=== PATIENT | female | born 1990 | race Two or more races ===

== ENCOUNTER 2019-03-07 21:20 | Emergency (ER) | payer MEDICAID ==
[~2019-03-07] VITALS: Ht 160 cm; Wt 81.6 kg
[2019-03-07 22:26] VITALS: BP 127/76
[2019-03-07] MEDS ORDERED: methylPREDNISolone SOD SUCC 125 MG/2 ML VL IM ONE (22:30)
[2019-03-07] MEDS ORDERED: methylPREDNISolone SOD SUCC 125 MG/2 ML VL ONE (22:30)
== END 2019-03-07 23:02 | disposition home or self-care (01) ==
LOC: ER 21:23
DX: L25.9 Unspecified contact dermatitis, unspecified cause (principal)
CPT/HCPCS: 96372; 99283; J2930

== ENCOUNTER 2020-04-20 16:49 | Emergency (ER) | payer MEDICAID ==
[~2020-04-20] VITALS: Ht 160 cm; Wt 71.7 kg
[2020-04-20 19:10] VITALS: BP 124/80
[2020-04-20] MEDS ORDERED: LIDOCAINE 1% HCL (LOCAL ANESTH.) INJ 20ML MDV ID ONE (19:15)
== END 2020-04-20 19:28 | disposition home or self-care (01) ==
LOC: ER 16:50
DX: N75.1 Abscess of Bartholin's gland (principal)
CPT/HCPCS: 56420; 99284; J2001